=== PATIENT | female | born 1935 | race Caucasian/White ===

== ENCOUNTER 2021-05-05 17:51 | Inpatient (IN) | payer BC, SELFPAY ==
[~2021-05-05] VITALS: Ht 157.5 cm; Wt 89.8 kg
[2021-05-05 18:05] VITALS: BP_SYST 160
[2021-05-05] MEDS ORDERED: FURO-149 PO (18:49)
[2021-05-05] MEDS ORDERED: POTA8TAB4 PO (18:49)
[2021-05-05] MEDS ORDERED: LOVA40TA75 PO (18:49)
[2021-05-05] MEDS ORDERED: GLU500 PO (18:49)
[2021-05-05] MEDS ORDERED: ASPI-1155 PO (18:49)
[2021-05-05] MEDS ORDERED: LISI20TA30 PO (18:49)
[2021-05-05] MEDS ORDERED: VANCOMYCIN HCL 1,000 MG in NS 250 ML IV ONE (19:00)
[2021-05-05] MEDS ORDERED: NACL 0.9% 1,000 ML IV ONE (19:00)
[2021-05-05] MEDS ORDERED: VANCOMYCIN HCL 1000 MG/VIAL IV ONE (19:07)
[2021-05-05 19:09] LABS: BASOPHILS % (AUTO) 0.4 % (0.0-2.0); EOSINOPHILS # (AUTO) 0.1 K/uL (0.0-0.4); EOSINOPHILS % (AUTO) 1.1 % (0.0-4.0); HEMATOCRIT 34.5 % (36-48); HEMOGLOBIN 11.4 g/dL (12.0-16.0); LYMPHOCYTES # (AUTO) 2.3 K/uL (1.0-5.5); LYMPHOCYTES % (AUTO) 21.3 % (20.5-51.5); MEAN CORPUSCULAR HEMOGLOBIN 29 pg (27-31); MEAN CORPUSCULAR HGB CONC 33 % (32-36); MEAN CORPUSCULAR VOLUME 89 fL (79.0-98.0); MONOCYTES # (AUTO) 1.2 K/uL (0.0-1.0); MONOCYTES % (AUTO) 11.1 % (1.7-9.3); NEUTROPHILS # (AUTO) 7.2 K/uL (1.8-7.7); NEUTROPHILS % (AUTO) 66.1 % (40.0-70.0); PLATELET COUNT (AUTO) 235 K/uL (130-430); WHITE BLOOD COUNT (AUTO) 10.9 K/uL (4.8-10.8)
[2021-05-05 19:13] LABS: ANION GAP 9 (5-15); CALCIUM 9.3 mg/dL (8.4-11.0); CHLORIDE 102 mmol/L (98-107); CREATININE 1.54 mg/dL (0.55-1.30); GLUCOSE 118 mg/dL (70-99); POTASSIUM 4.8 mmol/L (3.5-5.1); SODIUM SERUM 135 mmol/L (136-145); UREA NITROGEN, BLOOD 49 mg/dL (8-21)
[2021-05-05 19:24] LABS: ALANINE AMINOTRANSFERASE 30 U/L (12-78); ALBUMIN 2.6 g/dL (3.4-4.8); ASPARTATE AMINOTRANSFERASE 52 U/L (10-37); TOTAL BILIRUBIN 0.5 mg/dL (0.0-1.0)
[2021-05-05 19:57] LABS: BILIRUBIN,URINE NEGATIVE (NEGATIVE); BLOOD, URINE 1+ (NEGATIVE); COLOR,URINE YELLOW (YELLOW); GLUCOSE,URINE NEGATIVE (NEGATIVE); KETONES,URINE NEGATIVE (NEGATIVE); NITRITE, URINE POSITIVE (NEGATIVE); PH,URINE 5.5 (5.0-8.0); PROTEIN URINE NEGATIVE (NEGATIVE); UROBILINOGEN,URINE 0.2 (0.2-1.0)
[2021-05-05 20:04] LABS: CLARITY/URINE HAZY (CLEAR); LEUKOCYTE ESTERASE ,URINE 2+ (NEGATIVE)
[2021-05-05 20:05] LABS: BACTERIA,URINE FEW /HPF (None Seen); RBC,URINE NONE SEEN /HPF (0-3); WBC,URINE 20-50 /HPF (0-3)
[2021-05-05] MEDS ORDERED: KETOROLAC TROMETHAMINE 30 MG VIAL ONE (20:05)
[2021-05-05 20:06] LABS: MUCUS,URINE None Seen /LPF (None Seen)
[2021-05-05] MEDS ORDERED: HYDROcodone/ACETAMIN 5-325 MG TAB (NORCO/ VICODIN) PO PRN (20:30)
[2021-05-05] MEDS ORDERED: ALBUTEROL SULFATE 0.083% 2.5 MG/3 ML VIAL.NEB INH PRN (20:30)
[2021-05-05] MEDS ORDERED: cefTRIAXone 2 GM VIAL ONE (21:50)
[2021-05-05] MEDS: NORMAL SALINE 5 ML DISP.SYRIN IVF SCH (22:07)
[2021-05-06] MEDS: NORMAL SALINE 5 ML DISP.SYRIN IVF SCH ×3 (06:19→23:26)
[2021-05-06 06:44] LABS: BASOPHILS # (AUTO) 0.1 K/uL (0.0-0.2); BASOPHILS % (AUTO) 0.6 % (0.0-2.0); EOSINOPHILS # (AUTO) 0.2 K/uL (0.0-0.4); EOSINOPHILS % (AUTO) 1.9 % (0.0-4.0); HEMATOCRIT 30.7 % (36-48); HEMOGLOBIN 10.3 g/dL (12.0-16.0); LYMPHOCYTES % (AUTO) 21.6 % (20.5-51.5); MEAN CORPUSCULAR HEMOGLOBIN 30 pg (27-31); MEAN CORPUSCULAR HGB CONC 33 % (32-36); MEAN CORPUSCULAR VOLUME 90 fL (79.0-98.0); MONOCYTES # (AUTO) 1.5 K/uL (0.0-1.0); MONOCYTES % (AUTO) 15.9 % (1.7-9.3); NEUTROPHILS # (AUTO) 5.5 K/uL (1.8-7.7); PLATELET COUNT (AUTO) 222 K/uL (130-430); RED BLOOD CELL COUNT(AUTO) 3.41 MIL/uL (4.2-6.2); RED CELL DISTRIBUTION WIDTH 14.8 % (9.0-15.0); WHITE BLOOD COUNT (AUTO) 9.2 K/uL (4.8-10.8)
[2021-05-06 07:16] LABS: ALANINE AMINOTRANSFERASE 25 U/L (12-78); ALBUMIN 2.1 g/dL (3.4-4.8); ANION GAP 8 (5-15); ASPARTATE AMINOTRANSFERASE 38 U/L (10-37); CALCIUM 8.8 mg/dL (8.4-11.0); CHLORIDE 106 mmol/L (98-107); CREATININE 1.08 mg/dL (0.55-1.30); GLUCOSE 101 mg/dL (70-99); POTASSIUM 5.3 mmol/L (3.5-5.1); SODIUM SERUM 137 mmol/L (136-145); TOTAL BILIRUBIN 0.3 mg/dL (0.0-1.0); UREA NITROGEN, BLOOD 38 mg/dL (8-21)
[2021-05-06] MEDS: FUROSEMIDE 40 MG TABLET PO SCH (09:00)
[2021-05-06] MEDS: lisinopriL 20 MG TABLET PO SCH (09:00)
[2021-05-06 09:48] VITALS: BP_SYST 151
[2021-05-06] MEDS ORDERED: SODIUM POLYSTYRENE SULFONATE 15 GM/60 ML UDBTL PO ONE (10:00)
[2021-05-06] MEDS ORDERED: ASPIRIN 81 MG TAB.CHEW ONE (11:12)
[2021-05-06] MEDS ORDERED: FUROSEMIDE 20 MG TABLET ONE (11:13)
[2021-05-06] MEDS ORDERED: LISINOPRIL 10 MG TABLET (PRINIVIL) ONE (11:14)
[2021-05-06] MEDS ORDERED: ENOXAPARIN SODIUM 30 MG/0.3 ML SYRINGE ONE (11:15)
[2021-05-06] MEDS: ASPIRIN 81 MG TAB.CHEW PO SCH (11:15)
[2021-05-06] MEDS ORDERED: SODIUM POLYSTYRENE SULFONATE 15 GM/60 ML UDBTL ONE (11:16)
[2021-05-06] MEDS: ENOXAPARIN SODIUM 30 MG/0.3 ML SYRINGE SUBCUT SCH (11:18)
[2021-05-06 15:00] VITALS: BP_SYST 132
[2021-05-06 15:37] VITALS: BP_SYST 133
[2021-05-06] MEDS: ATORVASTATIN 10 MG TABLET PO SCH (17:05)
[2021-05-06 20:45] VITALS: BP_SYST 146
[2021-05-07 01:22] VITALS: BP_SYST 135
[2021-05-07] MEDS: NORMAL SALINE 5 ML DISP.SYRIN IVF SCH ×3 (05:33→21:00)
[2021-05-07 07:49] VITALS: BP_SYST 131
[2021-05-07] MEDS: lisinopriL 20 MG TABLET PO SCH (08:28)
[2021-05-07] MEDS: ASPIRIN 81 MG TAB.CHEW PO SCH (08:28)
[2021-05-07] MEDS: ENOXAPARIN SODIUM 30 MG/0.3 ML SYRINGE SUBCUT SCH (08:29)
[2021-05-07] MEDS: FUROSEMIDE 40 MG TABLET PO SCH (08:29)
[2021-05-07 11:39] VITALS: BP_SYST 123
[2021-05-07 15:26] VITALS: BP_SYST 131
[2021-05-07] MEDS: VANCOMYCIN HCL 1,000 MG in NS 250 ML IV SCH (17:08)
[2021-05-07] MEDS: ATORVASTATIN 10 MG TABLET PO SCH (17:09)
[2021-05-07 19:00] VITALS: BP_SYST 114
[2021-05-07 20:13] VITALS: BP_SYST 114
[2021-05-08] VITALS (7 sets, daily range): BP systolic 103–129
[2021-05-08] MEDS: NORMAL SALINE 5 ML DISP.SYRIN IVF SCH ×3 (05:40→20:37)
[2021-05-08 07:27] LABS: BASOPHILS % (AUTO) 0.3 % (0.0-2.0); EOSINOPHILS % (AUTO) 0.4 % (0.0-4.0); HEMATOCRIT 31.3 % (36-48); HEMOGLOBIN 10.3 g/dL (12.0-16.0); LYMPHOCYTES # (AUTO) 1.7 K/uL (1.0-5.5); MEAN CORPUSCULAR HEMOGLOBIN 29 pg (27-31); MEAN CORPUSCULAR HGB CONC 33 % (32-36); MEAN CORPUSCULAR VOLUME 89 fL (79.0-98.0); MONOCYTES # (AUTO) 1.4 K/uL (0.0-1.0); MONOCYTES % (AUTO) 12.2 % (1.7-9.3); NEUTROPHILS # (AUTO) 8.1 K/uL (1.8-7.7); NEUTROPHILS % (AUTO) 72.1 % (40.0-70.0); PLATELET COUNT (AUTO) 205 K/uL (130-430); RED BLOOD CELL COUNT(AUTO) 3.52 MIL/uL (4.2-6.2); RED CELL DISTRIBUTION WIDTH 14.9 % (9.0-15.0); WHITE BLOOD COUNT (AUTO) 11.3 K/uL (4.8-10.8)
[2021-05-08 08:04] LABS: ALANINE AMINOTRANSFERASE 21 U/L (12-78); ANION GAP 8 (5-15); ASPARTATE AMINOTRANSFERASE 26 U/L (10-37); CALCIUM 8.3 mg/dL (8.4-11.0); CHLORIDE 100 mmol/L (98-107); CREATININE 0.99 mg/dL (0.55-1.30); GLUCOSE 112 mg/dL (70-99); POTASSIUM 3.4 mmol/L (3.5-5.1); SODIUM SERUM 139 mmol/L (136-145); TOTAL BILIRUBIN 0.3 mg/dL (0.0-1.0); UREA NITROGEN, BLOOD 22 mg/dL (8-21)
[2021-05-08] MEDS: ASPIRIN 81 MG TAB.CHEW PO SCH (08:23)
[2021-05-08] MEDS: FUROSEMIDE 40 MG TABLET PO SCH (08:24)
[2021-05-08] MEDS: lisinopriL 20 MG TABLET PO SCH (08:24)
[2021-05-08] MEDS: ENOXAPARIN SODIUM 30 MG/0.3 ML SYRINGE SUBCUT SCH (08:25)
[2021-05-08 10:29] LABS: ERYTHROCYTE SEDIMENTATION RATE 94 MM/HR (0-20)
[2021-05-08] MEDS: ATORVASTATIN 10 MG TABLET PO SCH (17:28)
[2021-05-08] MEDS: VANCOMYCIN HCL 1,000 MG in NS 250 ML IV SCH (17:28)
[2021-05-09] VITALS (7 sets, daily range): BP systolic 101–129
[2021-05-09] MEDS: NORMAL SALINE 5 ML DISP.SYRIN IVF SCH ×3 (06:01→20:39)
[2021-05-09] MEDS: ENOXAPARIN SODIUM 30 MG/0.3 ML SYRINGE SUBCUT SCH (08:17)
[2021-05-09] MEDS: FUROSEMIDE 40 MG TABLET PO SCH (08:18)
[2021-05-09] MEDS: ASPIRIN 81 MG TAB.CHEW PO SCH (08:18)
[2021-05-09] MEDS: lisinopriL 20 MG TABLET PO SCH (08:19)
[2021-05-09 13:25] LABS: BASOPHILS # (AUTO) 0.1 K/uL (0.0-0.2); BASOPHILS % (AUTO) 0.5 % (0.0-2.0); EOSINOPHILS # (AUTO) 0.1 K/uL (0.0-0.4); EOSINOPHILS % (AUTO) 0.7 % (0.0-4.0); HEMATOCRIT 30.5 % (36-48); HEMOGLOBIN 10.2 g/dL (12.0-16.0); LYMPHOCYTES # (AUTO) 1.7 K/uL (1.0-5.5); LYMPHOCYTES % (AUTO) 11.8 % (20.5-51.5); MEAN CORPUSCULAR HEMOGLOBIN 30 pg (27-31); MEAN CORPUSCULAR HGB CONC 34 % (32-36); MEAN CORPUSCULAR VOLUME 89 fL (79.0-98.0); MONOCYTES % (AUTO) 7.3 % (1.7-9.3); NEUTROPHILS # (AUTO) 11.2 K/uL (1.8-7.7); NEUTROPHILS % (AUTO) 79.7 % (40.0-70.0); PLATELET COUNT (AUTO) 233 K/uL (130-430); RED BLOOD CELL COUNT(AUTO) 3.44 MIL/uL (4.2-6.2); RED CELL DISTRIBUTION WIDTH 14.4 % (9.0-15.0); WHITE BLOOD COUNT (AUTO) 14.1 K/uL (4.8-10.8)
[2021-05-09] MEDS: ATORVASTATIN 10 MG TABLET PO SCH (17:42)
[2021-05-09] MEDS: VANCOMYCIN HCL 1,000 MG in NS 250 ML IV SCH (17:43)
[2021-05-09] MEDS: INSULIN REGULAR, HUMAN 100 UNITS/ML, 10 ML VIAL (humuLIN R) SUBCUT PRN (20:37)
[2021-05-10] VITALS: BP_SYST 127
[2021-05-10] MEDS: NORMAL SALINE 5 ML DISP.SYRIN IVF SCH ×3 (05:54→20:44)
[2021-05-10] MEDS: lisinopriL 20 MG TABLET PO SCH (09:00)
[2021-05-10] MEDS: ASPIRIN 81 MG TAB.CHEW PO SCH (10:29)
[2021-05-10] MEDS: ENOXAPARIN SODIUM 30 MG/0.3 ML SYRINGE SUBCUT SCH (10:29)
[2021-05-10 10:35] VITALS: BP_SYST 131
[2021-05-10] MEDS: FUROSEMIDE 40 MG TABLET PO SCH (10:44)
[2021-05-10 12:53] VITALS: BP_SYST 146
[2021-05-10 16:17] VITALS: BP_SYST 137
[2021-05-10] MEDS: ATORVASTATIN 10 MG TABLET PO SCH (17:12)
[2021-05-10] MEDS: VANCOMYCIN HCL 1,250 MG in NS 250 ML IV SCH (17:13)
[2021-05-10 20:00] VITALS: BP_SYST 123
[2021-05-10] MEDS: INSULIN REGULAR, HUMAN 100 UNITS/ML, 10 ML VIAL (humuLIN R) SUBCUT PRN (20:48)
[2021-05-11] VITALS: BP_SYST 112
[2021-05-11] MEDS: NORMAL SALINE 5 ML DISP.SYRIN IVF SCH ×3 (05:53→21:24)
[2021-05-11] MEDS: ASPIRIN 81 MG TAB.CHEW PO SCH (09:18)
[2021-05-11] MEDS: ENOXAPARIN SODIUM 30 MG/0.3 ML SYRINGE SUBCUT SCH (09:18)
[2021-05-11] MEDS: lisinopriL 20 MG TABLET PO SCH (09:21)
[2021-05-11] MEDS: FUROSEMIDE 40 MG TABLET PO SCH (09:21)
[2021-05-11 09:23] VITALS: BP_SYST 124
[2021-05-11] MEDS ORDERED: EMOLLIENT COMBINATION NO.73 78 GM CREAM..G. TP ONE (14:30)
[2021-05-11] MEDS: ATORVASTATIN 10 MG TABLET PO SCH (17:21)
[2021-05-11] MEDS: VANCOMYCIN HCL 1,250 MG in NS 250 ML IV SCH (17:26)
[2021-05-11 20:00] VITALS: BP_SYST 148
[2021-05-11] MEDS: EMOLLIENT COMBINATION NO.73 78 GM CREAM..G. TP SCH (21:21)
[2021-05-12] VITALS: BP_SYST 141
[2021-05-12] MEDS: NORMAL SALINE 5 ML DISP.SYRIN IVF SCH ×2 (06:12→15:32)
[2021-05-12 08:00] VITALS: BP_SYST 129
[2021-05-12] MEDS: FUROSEMIDE 40 MG TABLET PO SCH (09:14)
[2021-05-12] MEDS: lisinopriL 20 MG TABLET PO SCH (09:27)
[2021-05-12] MEDS: ASPIRIN 81 MG TAB.CHEW PO SCH (09:27)
[2021-05-12] MEDS: EMOLLIENT COMBINATION NO.73 78 GM CREAM..G. TP SCH (09:30)
[2021-05-12] MEDS: ENOXAPARIN SODIUM 30 MG/0.3 ML SYRINGE SUBCUT SCH (09:30)
[2021-05-12] MEDS ORDERED: levoFLOXacin 250 MG TABLET PO ONE (10:00)
[2021-05-12] MEDS ORDERED: LEVO250T58 PO (10:43)
[2021-05-12 12:20] VITALS: BP_SYST 126
[2021-05-12 16:00] VITALS: BP_SYST 139
[2021-05-12] MEDS: ATORVASTATIN 10 MG TABLET PO SCH (17:29)
[2021-05-12 17:44] VITALS: BP_SYST 126
[2021-05-12 19:23] VITALS: BP_SYST 128
[2021-05-13] MEDS ORDERED: levoFLOXacin 250 MG TABLET PO SCH (10:00)
== END 2021-05-12 20:17 | disposition home health service (06) | DRG 871 ==
LOC: SED 17:51 → STU 20:26 → OBSVTOIN 05-06 09:50 → STU 05-06 14:02 → SMU 05-09 23:46
PROVIDERS: ADMIT Internal Medicine Hospice and Palliative Medicine; ATTEND Internal Medicine Hospice and Palliative Medicine
DX: A41.2 Sepsis due to unspecified staphylococcus (principal); I50.43 Acute on chronic combined systolic (congestive) and diastolic (congestive) heart failure; E43 Unspecified severe protein-calorie malnutrition; L03.116 Cellulitis of left lower limb; N39.0 Urinary tract infection, site not specified; E46 Unspecified protein-calorie malnutrition; L03.115 Cellulitis of right lower limb; E87.1 Hypo-osmolality and hyponatremia; D64.9 Anemia, unspecified; E11.65 Type 2 diabetes mellitus with hyperglycemia; E66.9 Obesity, unspecified; E87.5 Hyperkalemia; E78.2 Mixed hyperlipidemia; I87.8 Other specified disorders of veins; I11.0 Hypertensive heart disease with heart failure; N19 Unspecified kidney failure; I25.10 Atherosclerotic heart disease of native coronary artery without angina pectoris; E78.00 Pure hypercholesterolemia, unspecified; I50.9 Heart failure, unspecified; I89.0 Lymphedema, not elsewhere classified; Z20.822 Contact with and (suspected) exposure to COVID-19; Z79.01 Long term (current) use of anticoagulants; Z87.891 Personal history of nicotine dependence; Z79.82 Long term (current) use of aspirin; Z79.899 Other long term (current) drug therapy; Z68.36 Body mass index [BMI] 36.0-36.9, adult
CPT/HCPCS: 36415; 71045; 80053; 80202; 81000; 82962; 83605; 85025; 85651-TC; 86140; 87040-TC; 87086; 87186-TC; 93005; 93306; 93923; 94760; 96361; 96365; 96366; 96367; 97110-GP; 97116-GP; 97530-GP; 99291; G0378; J0696; J1650; J1815; J1885; J3370; J7050; J7060